=== PATIENT | male | born 1980 | race Caucasian/White ===

== ENCOUNTER 2016-11-26 07:07 | Day surgery (SDC) | payer BC ==
--- NOTE | ~2016-11-26 | OP ---
Record Of Operation [facility] [address] [place]. [address] NAME: ROSA LOPEZ : 78 [place] [facility] [place] [id number] AGE: 36 ADM/REG DATE : 11/26/16 MR#: [id number] REPORT SERV DATE: 11/26/16 DICTATED BY: SUKH SANTOS DATE: 11/26/16 REPORT STATUS : Draft TRANSCRIBED BY: MODL DATE: 11/26/16 DATE OF PROCEDURE: 11/26/2016 PREOPERATIVE DIAGNOSIS: Chronic cholecystitis with cholelithiasis. POSTOPERATIVE DIAGNOSIS: Chronic cholecystitis with cholelithiasis. PROCEDURE: Laparoscopic cholecystectomy (two-site). DESCRIPTION OF OPERATIVE PROCEDURE: The patient was brought to the operating suite, placed in supine position, underwent satisfactory general endotracheal anesthesia without incident. The skin of the abdomen was scrubbed, prepped, and draped in usual sterile fashion. 0.5% Marcaine with epinephrine was utilized as supplemental local anesthesia. Initially, an infraumbilical incision was performed dissecting through the skin and subcutaneous tissue to the umbilical fascia. This was grasped with a Alanna clamp and elevated and a disposable Veress insufflation needle was inserted through the umbilical fascia into the peritoneal cavity. Intraperitoneal tip location was ascertained using the saline hanging drop method following which CO2 was insufflated for pressures of 15 mmHg throughout the case. After adequate insufflation pressure was achieved, Veress needle was removed, disposable bladed/shielded 11 mm trocar placed through the umbilical fascia into the peritoneal cavity following which a rigid forward viewing 10 mm laparoscope was inserted. Visualization of the intraabdominal parietes revealed no evidence of injury from initial insufflation or puncture. A cursory examination of the pelvis was normal. Attention was turned to the upper abdomen where an additional 5 mm trocar was placed to the right of falciform ligament. An additional 5 mm grasping instrument inserted through the umbilical fascia next to the umbilical trocar. The fundus and body of the gallbladder grasped and elevated exposing the infundibular area. Dissection of the triangle of Calot was successful in identifying and skeletonizing the cystic duct and cystic duct and common duct junction as well as the cystic artery. Both of these structures were isolated and skeletonized, controlled with multiple 5 mm Weck polymer clips and divided. Using spatula cautery dissection, the attachments to the gallbladder and liver were divided. The gallbladder was removed from the subhepatic space. Hemostasis was assured. Next, the camera switched to the 5 mm epigastric port. The gallbladder was grasped by its neck and removed through the umbilical port. It was opened and found to contain a single stone. CO2 was allowed to egress from the peritoneal cavity. The umbilicus was closed with figure- of-eight suture of 0 Vicryl, subcutaneous tissue closed at all sites with interrupted 4-0 Record Of Operation [address] [address] NAME: ROSA LOPEZ : 78 [place] [facility] [place] [id number] AGE: 36 ADM/REG DATE : 11/26/16 MR#: [id number] REPORT SERV DATE: 11/26/16 DICTATED BY: SUKH SANTOS DATE: 11/26/16 REPORT STATUS : Draft TRANSCRIBED BY: GIANL DATE: 11/26/16 Vicryl, running subcuticular stitch of 4-0 Vicryl for the skin. Dermabond skin adhesive applied. The patient tolerated the procedure well and was returned to PACU in stable condition. At the termination of the procedure, sponge, needle, lap, and instrument counts were correct x3. ESTIMATED BLOOD LOSS: Less than 5-10 mL. ASIF/JANET Sukh Santos M.D. / [id number] CC: Sukh Santos M.D.
[2016-11-26 07:25] LABS: HEMATOCRIT 45.8 % (40.0-51.0); HEMOGLOBIN 15.9 g/dL (13.6-17.8)
[2016-11-26 07:40] LABS: A/G RATIO 1.2 (0.7-1.9); ALBUMIN 3.7 G/DL (3.5-5.0); ALKALINE PHOSPHATASE 65 U/L (45-117); BUN (BLOOD UREA NITROGEN) 15 MG/DL (6-23); CALCIUM, SERUM 8.8 MG/DL (8.5-10.4); CHLORIDE, SERUM 108 MMOL/L (96-112); CO2 (CARBON DIOXIDE) 28 MMOL/L (24-34); CREATININE 0.79 MG/DL (0.70-1.30); GFR AFRICAN AMERICAN 133 ML/MIN (>=60); GFR NON AFRICAN AMERICAN 115 ML/MIN (>=60); GLOBULIN 3.2 G/DL (2.5-4.1); GLUCOSE, SERUM 94 MG/DL (60-99); POTASSIUM, SERUM 4.3 MMOL/L (3.5-5.3); SGOT(AST) 19 U/L (5-40); SGPT(ALT) 29 U/L (5-65); SODIUM, SERUM 142 MMOL/L (135-148); TOTAL BILIRUBIN 0.4 MG/DL (0-1.2); TOTAL PROTEIN 6.9 G/DL (6.0-8.5)
== END 2016-11-26 23:59 | disposition home or self-care (01) ==
LOC: MSC 07:07
PROVIDERS: Specialist
PROC: 0FT44ZZ Resection of Gallbladder, Percutaneous Endoscopic Approach (ICD-10-PCS; principal; 2016-11-26 09:15)
DX: K80.10 Calculus of gallbladder with chronic cholecystitis without obstruction (principal); F17.210 Nicotine dependence, cigarettes, uncomplicated
CPT/HCPCS: 80053; 85014; 85018; 88304; A9270-GY; J0690; J1885; J2250; J2405; J2550; J2710; J3010